=== PATIENT | male | born 2000 | race Hispanic/Latino ===

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

== ENCOUNTER 2022-11-23 17:58 | Emergency (ER) | payer SELFPAY ==
[2022-11-23 20:06] LABS: Absolute Lymphocytes (CBC) 2.3 K/uL (0.7-4.9); Hematocrit 41.4 % (39.6-49.0); Lymphocytes % 34.1 % (15.3-44.8); MCV 87.5 fL (80-100); RBC Red Blood Cell Count 4.72 M/uL (4.33-5.43)
[2022-11-23 20:21] LABS: Albumin 4.6 g/dL (3.4-5.0); Bilirubin Total 0.5 mg/dL (0.2-1.0); Potassium 3.7 mEq/L (3.5-5.1); Protein, Total 7.5 g/dL (6.4-8.2)
[2022-11-23] MEDS ORDERED: ONDANSETRON 4 MG/2 ML VIAL ONE (20:46)
[2022-11-23] MEDS ORDERED: NA CHLORIDE 0.9% 1,000 ML ONE (20:46)
[2022-11-23] MEDS ORDERED: FAMOTIDINE 20 MG/2 ML VIAL IV ONE (20:46)
--- NOTE | 2022-11-23 21:17 | ER ---
Nurse's Notes [facility] Name: Maurice Zelaya Age: 22 yrs Sex: Male : 2000 Arrival Date: 11/23/2022 Time: 17:58 Bed 11 Private MD: Diagnosis: Nausea with vomiting, unspecified;Diarrhea, unspecified Presentation: 11/23 18:17 Chief complaint: Patient states: he has been having diarrhea for approx one week, and ap3 he is having abdominal pain, night sweats, nausea and vomiting. the last few days the patient reports he has become increasingly tired throughout the day and is starting to feel weak. Coronavirus screen: At this time, the client does not indicate any symptoms associated with coronavirus-19. Ebola Screen: No symptoms or risks identified at this time. Initial Sepsis Screen: Does the patient meet any 2 criteria? No. Patient's initial sepsis screen is negative. Does the patient have a suspected source of infection? No. Patient's initial sepsis screen is negative. Risk Assessment: Do you want to hurt yourself or someone else? Patient reports no desire to harm self or others. Onset of symptoms was November 15, 2022. 18:17 Method Of Arrival: Ambulatory ap3 18:17 Acuity: KATHLEEN 3 ap3 Triage Assessment: 18:20 General: Appears in no apparent distress. Behavior is calm, cooperative. Pain: ap3 Complains of pain in abdomen and head. Neuro: Level of Consciousness is awake, alert, obeys commands, Oriented to person, place, time, situation. Neuro: Reports headache. Cardiovascular: Patient's skin is warm and dry. Respiratory: Airway is patent Respiratory effort is even, unlabored, Respiratory pattern is regular, symmetrical. GI: Reports diarrhea, nausea, vomiting, since one week. Historical: - Allergies: 18:19 PENICILLINS; ap3 - Home Meds: 18:19 None [Active]; ap3 - PMHx: 18:19 None; ap3 - Immunization history:: Client reports having NOT received the Covid vaccine. - Social history:: Smoking status: Reported history of juuling and/or vaping. Screenin:21 Abuse screen: Denies threats or abuse. Nutritional screening: No deficits noted. ap3 Tuberculosis screening: No symptoms or risk factors identified. 21:45 [facility] ED Fall Risk Assessment (Adult) History of falling in the last 3 months, kl including since admission No falls in past 3 months (0 pts) Confusion or Disorientation No (0 pts) Intoxicated or Sedated No (0 pts) Impaired Gait No (0 pts) Mobility Assist Device Used No (0 pt) Altered Elimination No (0 pt) Score/Fall Risk Level 0 - 2 = Low Risk. Assessment: 20:53 General: Appears in no apparent distress. comfortable, Behavior is calm, cooperative. kl Neuro: No deficits noted. Cardiovascular: No deficits noted. Respiratory: No deficits noted. GI: Abdomen is flat, Bowel sounds present X 4 quads. Reports nausea. : No deficits noted. No signs and/or symptoms were reported regarding the genitourinary system. EENT: No deficits noted. Derm: No deficits noted. No signs and/or symptoms reported regarding the dermatologic system. Vital Signs: 18:17 BP 121 / 75; Pulse 61; Resp 17; Temp 98.8; Pulse Ox 98% ; Weight 77.11 kg; Height 5 ft. ap3 10 in. ; 20:55 BP 118 / 78; Pulse 68; Resp 18; Temp 98(TE); kl 21:44 BP 114 / 96; Pulse 82; Resp 18; Temp 98(TE); Pulse Ox 100% ; kl 18:17 Body Mass Index 24.39 (77.11 kg, 177.8 cm) ap3 ED Course: 18:02 Patient arrived in ED. rg4 18:03 Dustin Gillette PA is PHCP. cp 18:03 Bobby Louis MD is Attending Physician. cp 18:19 Triage completed. ap3 18:21 Arm band placed on right wrist. ap3 19:25 Attending Physician role handed off by Bobby Louis MD cp 19:25 Dustin Monte MD is Attending Physician. cp 19:40 Inserted saline lock: 20 gauge in right antecubital area, using aseptic technique. Blood collected. 19:52 CBC with Diff Sent. kl 19:52 CMP Sent. kl 19:52 Lipase Sent. kl 19:52 COVID-19 SARS RT PCR Sent. kl 20:47 Urinalysis W/Microscopic Sent. kl 21:14 XRAY Chest (1 view) In Process Unspecified. EDMS 21:44 No provider procedures requiring assistance completed. Patient transferred, IV remains kl in place. intact, bleeding controlled, No redness/swelling at site. Pressure dressing applied. 21:45 Patient has correct armband on for positive identification. kl Administered Medications: 20:47 Drug: NS 0.9% IV 1000 ml Route: IV; Rate: 1 bolus; Site: right antecubital; kl 21:43 Follow up: IV Status: Completed infusion; IV Intake: 1000ml kl 20:47 Drug: Ondansetron IVP 4 mg Route: IVP; Site: right antecubital; kl 21:44 Follow up: Response: No adverse reaction; Marked relief of symptoms kl 20:47 Drug: Famotidine IVP 20 mg Route: IVP; Site: right antecubital; kl 21:43 Follow up: Response: No adverse reaction; Marked relief of symptoms kl Medication: 21:45 VIS not applicable for this client. kl Intake: 21:43 IV: 1000ml; Total: 1000ml. Outcome: 21:16 Discharge ordered by . lynnette 21:45 Discharged to home ambulatory. 21:45 Condition: stable 21:45 Discharge instructions given to patient, Instructed on discharge instructions, follow up and referral plans. Demonstrated understanding of instructions, follow-up care, medications, Prescriptions given X 1. 21:45 Patient left the ED. Signatures: Dispatcher [employer] EDAmie Hager RN Dustin Boothe PA PA cp Garcia, Rubi rg4 Harmony Zee RN RN ap3
--- NOTE | 2022-11-23 21:17 | EDPHYS ---
Physician Documentation [facility] Name: Maurice Zelaya Age: 22 yrs Sex: Male : 2000 Arrival Date: 11/23/2022 Time: 17:58 Bed 11 Private MD: ED Physician Dustin Monte HPI: 11/23 18:35 This 22 yrs old Male presents to ER via Ambulatory with complaints of cp Vomiting, Dizziness. 18:35 The patient presents to the emergency department with nausea, that is mild, vomiting, cp that is intermittent, diarrhea, that is continuous, about 2 episodes per day, abdominal pain, of the left upper quadrant and right lower quadrant, described as intermittent. 18:35 Onset: The symptoms/episode began/occurred 1 week(s) ago. cp 18:35 Possible causes: unknown. Associated signs and symptoms: Pertinent positives: fatigue, cp decreased appetite, Pertinent negatives: constipation, dysuria, fever, GI bleeding, active vomiting. Severity of symptoms: in the emergency department the symptoms are unchanged despite home interventions. Historical: - Allergies: 18:19 PENICILLINS; ap3 - Home Meds: 18:19 None [Active]; ap3 - PMHx: 18:19 None; ap3 - Immunization history:: Client reports having NOT received the Covid vaccine. - Social history:: Smoking status: Reported history of juuling and/or vaping. ROS: 19:00 Eyes: Negative for injury, pain, redness, and discharge. cp 19:00 Constitutional: Positive for fatigue, Negative for body aches, chills, fever, poor PO intake. 19:00 ENT: Negative for drainage from ear(s), ear pain, sore throat, difficulty swallowing, difficulty handling secretions. 19:00 Cardiovascular: Positive for chest pain, Negative for edema, palpitations. 19:00 Respiratory: Negative for cough, shortness of breath, wheezing. 19:00 Abdomen/GI: Positive for abdominal pain, nausea, vomiting, and diarrhea. 19:00 : Negative for urinary symptoms, testicular pain 19:00 Neuro: Positive for Negative for altered mental status, headache, syncope, weakness. 19:00 All other systems are negative. Exam: 19:00 Constitutional: The patient appears in no acute distress, alert, awake, comfortable, cp non-toxic, well developed, well nourished. 19:00 Head/Face: Normocephalic, atraumatic. cp 19:00 Eyes: Periorbital structures: appear normal, Conjunctiva: normal, no exudate, no injection, Sclera: no appreciated abnormality, Lids and lashes: appear normal, bilaterally. 19:00 ENT: External ear(s): are unremarkable, Nose: is normal, Mouth: Lips: moist, Oral mucosa: pink and intact, moist, Posterior pharynx: is normal, airway is patent, no erythema, no exudate. 19:00 Chest/axilla: Inspection: normal. 19:00 Cardiovascular: Rate: normal, Rhythm: regular. 19:00 Respiratory: the patient does not display signs of respiratory distress, Respirations: normal, no use of accessory muscles, no retractions, labored breathing, is not present, Breath sounds: are clear throughout, no decreased breath sounds, no stridor, no wheezing. 19:00 Abdomen/GI: Inspection: abdomen appears normal, Bowel sounds: active, all quadrants, Palpation: abdomen is soft and non-tender, in all quadrants. 19:00 Back: pain, is absent, ROM is normal. 19:00 Skin: no rash present. 19:00 Neuro: Orientation: to person, place \T\ time. Mentation: is normal, Motor: moves all fours, strength is normal, Sensation: is normal. Vital Signs: 18:17 BP 121 / 75; Pulse 61; Resp 17; Temp 98.8; Pulse Ox 98% ; Weight 77.11 kg; Height 5 ft. ap3 10 in. ; 20:55 BP 118 / 78; Pulse 68; Resp 18; Temp 98(TE); kl 21:44 BP 114 / 96; Pulse 82; Resp 18; Temp 98(TE); Pulse Ox 100% ; kl 18:17 Body Mass Index 24.39 (77.11 kg, 177.8 cm) ap3 MDM: 18:28 Patient medically screened. cp 20:50 Independent interpretation of the following test(s) in the Emergency Department X-Ray: cp My interpretation is chest image negative for infiltrates. 21:15 Data reviewed: vital signs, nurses notes, lab test result(s), EKG, radiologic studies, cp plain films. 21:15 Differential diagnosis: Nonspecific abd pain, gastritis, appendicitis, viral cp gastroenteritis, gastroenteritis. Consideration of Admission/Observation Escalation of care including admission/observation considered. I considered the following discharge prescriptions or medication management in the emergency department Medications were administered in the Emergency Department. See MAR. Test considered but Not performed: CT: abdomen/pelvis. Counseling: I had a detailed discussion with the patient and/or guardian regarding: the historical points, exam findings, and any diagnostic results supporting the discharge/admit diagnosis, lab results, radiology results, to return to the emergency department if symptoms worsen or persist or if there are any questions or concerns that arise at home. 11/23 18:29 Order name: COVID-19 SARS RT PCR; Complete Time: 21:23 11/23 21:23 Interpretation: Reviewed. 11/23 18:29 Order name: CBC with Diff; Complete Time: 20:22 11/23 18:29 Order name: CMP; Complete Time: 20:22 11/23 20:40 Interpretation: Normal except: ANION GAP 3.7; ALT 13; AST 12. 11/23 18:29 Order name: Lipase; Complete Time: 20:22 11/23 18:29 Order name: Urinalysis W/Microscopic; Complete Time: 21:23 11/23 21:23 Interpretation: Normal except: Urine SG > 1.030; UPROT 1+; UUROB 2+. 11/23 20:26 Order name: XRAY Chest (1 view); Complete Time: 21:23 11/23 21:24 Interpretation: Report review. 11/23 20:26 Order name: EKG; Complete Time: 20:27 11/23 18:29 Order name: Orthostatic Blood Pressure 11/23 18:29 Order name: IV Saline Lock; Complete Time: 19:52 11/23 18:29 Order name: Labs collected and sent; Complete Time: 19:52 11/23 20:26 Order name: EKG - Nurse/Tech cp Administered Medications: 20:47 Drug: NS 0.9% IV 1000 ml Route: IV; Rate: 1 bolus; Site: right antecubital; kl 21:43 Follow up: IV Status: Completed infusion; IV Intake: 1000ml kl 20:47 Drug: Ondansetron IVP 4 mg Route: IVP; Site: right antecubital; kl 21:44 Follow up: Response: No adverse reaction; Marked relief of symptoms kl 20:47 Drug: Famotidine IVP 20 mg Route: IVP; Site: right antecubital; kl 21:43 Follow up: Response: No adverse reaction; Marked relief of symptoms kl Disposition Summary: 11/23/22 21:16 Discharge Ordered Location: Home cp Problem: new cp Symptoms: have improved cp Condition: Stable cp Diagnosis - Nausea with vomiting, unspecified cp - Diarrhea, unspecified cp Followup: cp - With: Private Physician - When: 2 - 3 days - Reason: Recheck today's complaints Discharge Instructions: - Discharge Summary Sheet cp - Food Choices to Help Relieve Diarrhea, Adult cp - Diarrhea, Adult cp - Nausea and Vomiting, Adult cp Forms: - Medication Reconciliation Form cp - Thank You Letter cp - Antibiotic Education cp - Prescription Opioid Use cp Prescriptions: - Zofran 4 mg Oral Tablet - take 1 tablet by ORAL route every 12 hours As needed; 20 tablet; Refills: 0, cp Product Selection Permitted Addendum: 11/28/2022 06:59 Co-signature as Attending Physician, Bobby Louis MD I reviewed the patient's care r n provided by the Advanced Practice Provider and agree with the diagnosis and treatment plan. Signatures: Dispatcher [employer] Amie Shin RN RN kl Nieto, Roman, MD MD rn Page, Corey, PA PA cp Prokisch, Amanda, RN RN ap3 Corrections: (The following items were deleted from the chart) 11/23 20:40 20:23 Normal except: ANION GAP 3.7. cp cp
[2022-11-23 21:20] LABS: Specific Gravity > 1.030 (1.005-1.030); Urine Bacteria None Seen /HPF (<20); Urine Bilirubin NEGATIVE (Negative); Urine Blood Negative (Negative); Urine Clarity Clear (Clear); Urine Color Yellow (Yellow); Urine Glucose NEGATIVE (Negative); Urine Mucus 1+ /HPF (None Seen); Urine Protein 1+ (Negative); Urine RBC <5 /HPF (None Seen); Urine Urobilinogen 2+ (Normal)
--- NOTE | 2022-11-23 21:21 | RAD REPORT ---
EXAM DESCRIPTION: Mary Single View11/23/2022 9:12 pm CLINICAL HISTORY: CHEST PAIN COMPARISON: No comparisons TECHNIQUE: Portable AP view of the chest. FINDINGS: The lungs are clear. No pneumothorax or effusion. The cardiomediastinal contours are unrem arkable. IMPRESSION: No acute cardiopulmonary process.
[2022-11-23 21:59] VITALS: TEMP 98
[2022-11-23 22:02] VITALS: BP 114/96; O2SAT 100
== END 2022-11-23 21:45 | disposition home or self-care (01) ==
LOC: ER 17:58
DX: R11.2 Nausea with vomiting, unspecified (principal); R19.7 Diarrhea, unspecified; Z20.822 Contact with and (suspected) exposure to COVID-19; Z88.0 Allergy status to penicillin
CPT/HCPCS: 36415; 71045; 80053; 81001; 83690; 85025; 96361; 96374; 96375; 99284; J2405; J7030; U0003

== ENCOUNTER 2023-06-02 12:15 | Emergency (ER) | payer SELFPAY ==
--- NOTE | 2023-06-02 12:37 | ER ---
Nurse's Notes [facility] Name: Maurice Zelaya Age: 23 yrs Sex: Male : 2000 Arrival Date: 06/02/2023 Time: 12:15 Bed IW5 Private MD: Diagnosis: Unspecified injury of head, initial encounter Presentation: 06/02 12:32 Chief complaint: Patient states: hitting his head on a metal frame and has a laceration cm10 to top of head. No LOC. Bleeding controlled at this time. Coronavirus screen: Vaccine status: Patient reports being unvaccinated. Client denies travel out of the [place] in the last 14 days. Ebola Screen: Patient denies travel to an Ebola-affected area in the 21 days before illness onset. No symptoms or risks identified at this time. Mechanism of Injury: resulted from. Initial Sepsis Screen: Does the patient meet any 2 criteria? No. Patient's initial sepsis screen is negative. Does the patient have a suspected source of infection? No. Patient's initial sepsis screen is negative. Risk Assessment: Do you want to hurt yourself or someone else? Patient reports no desire to harm self or others. Onset of symptoms was June 02, 2023. 12:32 Method Of Arrival: Ambulatory cm10 12:32 Acuity: KATHLEEN 4 cm10 Triage Assessment: 12:47 General: Appears in no apparent distress. comfortable, Behavior is calm, cooperative. cm10 Pain: Complains of pain in top of head. EENT: No deficits noted. No signs and/or symptoms were reported regarding the EENT system. Neuro: No deficits noted. Morales Agitation-Sedation Scale (RASS): 0 - Alert and Calm Level of Consciousness is awake, alert, obeys commands, Oriented to person, place, time, situation. Cardiovascular: No deficits noted. Patient's skin is warm and dry. Respiratory: No deficits noted. Airway is patent Respiratory effort is even, unlabored, Respiratory pattern is regular, symmetrical. GI: No deficits noted. No signs and/or symptoms were reported involving the gastrointestinal system. : No deficits noted. No signs and/or symptoms were reported regarding the genitourinary system. Derm: No deficits noted. No signs and/or symptoms reported regarding the dermatologic system. Skin is intact, Skin is pink, warm \T\ dry. Musculoskeletal: No deficits noted. No signs and/or symptoms reported regarding the musculoskeletal system. Range of motion: intact in all extremities. Historical: - Allergies: 12:31 PENICILLINS; cm10 - Home Meds: 12:31 None [Active]; cm10 - PMHx: 12:31 None; cm10 - PSHx: 12:31 None; cm10 - Immunization history:: Adult Immunizations unknown. - Social history:: Smoking status: Patient reports the use of cigarette tobacco products, denies chronic smoking, but will smoke occasionally. - Family history:: not pertinent. - Hospitalizations: : No recent hospitalization is reported. Screenin:48 [facility] ED Fall Risk Assessment (Adult) History of falling in the last 3 months, cm10 including since admission No falls in past 3 months (0 pts) Confusion or Disorientation No (0 pts) Intoxicated or Sedated No (0 pts) Impaired Gait No (0 pts) Mobility Assist Device Used No (0 pt) Altered Elimination No (0 pt) Score/Fall Risk Level 0 - 2 = Low Risk Oriented to surroundings, Maintained a safe environment, Hourly rounding (assess needs \T\ fall precautionary measures) done. Abuse screen: Denies threats or abuse. Denies injuries from another. Nutritional screening: No deficits noted. Tuberculosis screening: No symptoms or risk factors identified. Vital Signs: 12:32 BP 123 / 77; Pulse 70; Resp 16; Temp 98.2; Pulse Ox 100% ; Weight 72.57 kg; Height 5 cm10 ft. 11 in. ; Pain 6/10; 12:32 Body Mass Index 22.32 (72.57 kg, 180.34 cm) cm10 12:32 Pain Scale: Adult cm10 [place] Coma Score: 12:32 Eye Response: spontaneous(4). Motor Response: obeys commands(6). Verbal Response: cm10 oriented(5). Total: 15. 12:33 Eye Response: spontaneous(4). Motor Response: obeys commands(6). Verbal Response: rn oriented(5). Total: 15. 12:33 Eye Response: spontaneous(4). Motor Response: obeys commands(6). Verbal Response: rn oriented(5). Total: 15. ED Course: 12:18 Patient arrived in ED. mr 12:18 Bobby Louis MD is Attending Physician. rn 12:33 Triage completed. cm10 12:34 Arm band placed on right wrist. Patient placed in waiting room. cm10 12:48 Patient has correct armband on for positive identification. Provided Education on: ER cm10 process and procedures. . 12:48 No provider procedures requiring assistance completed. Patient did not have IV access cm10 during this emergency room visit. Administered Medications: No medications were administered Medication: 12:48 VIS not applicable for this client. cm10 Outcome: 12:36 Discharge ordered by . rn 12:48 Discharged to home ambulatory, with family, cm10 12:48 Condition: good 12:48 Discharge instructions given to patient, Instructed on discharge instructions, follow up and referral plans. Demonstrated understanding of instructions, follow-up care, 12:48 Patient left the ED. cm10 Signatures: Aubree Castaneda Reg Reg mr Bobby Louis MD MD rn Shanita Read RN RN cm10
--- NOTE | 2023-06-02 12:37 | EDPHYS ---
Physician Documentation [facility] Name: Maurice Zelaya Age: 23 yrs Sex: Male : 2000 Arrival Date: 06/02/2023 Time: 12:15 Bed IW5 Private MD: ED Physician Bobby Louis HPI: 06/02 12:33 This 23 yrs old Male presents to ER via Unassigned with complaints of Head rn Injury-Adult. 12:33 The patient or guardian reports injury. The complaints affect the top of head. Onset: rn The symptoms/episode began/occurred just prior to arrival. Associated signs and symptoms: Loss of consciousness: This patient did not experience any loss of consciousness. Pertinent positives: headache, Pertinent negatives: the patient has not experienced a loss of conciousness, patient denies any alcohol consumption, dazed, incontinence, neck pain, seizure, shortness of breath, tinnitus, vomiting, weakness in extremities, generalized weakness. Severity of symptoms: At their worst the symptoms were mild, in the emergency department the symptoms have improved. The patient has not experienced similar symptoms in the past. Patient reports was weed eating and accidentally struck his head on a light post. Had a small cut there was bleeding initially but stopped on its own. Reports mild headache but no vomiting/seizures/loss of consciousness. No focal neurological problems or complaints. Does not take any blood thinners. Patient states feels fine now.. Historical: - Allergies: 12:31 PENICILLINS; cm10 - Home Meds: 12:31 None [Active]; cm10 - PMHx: 12:31 None; cm10 - PSHx: 12:31 None; cm10 - Immunization history:: Adult Immunizations unknown. - Social history:: Smoking status: Patient reports the use of cigarette tobacco products, denies chronic smoking, but will smoke occasionally. - Family history:: not pertinent. - Hospitalizations: : No recent hospitalization is reported. ROS: 12:33 Constitutional: Negative for fever, chills, and weight loss, Neck: Negative for injury, rn pain, and swelling, Abdomen/GI: Negative for abdominal pain, nausea, vomiting, diarrhea, and constipation, Neuro: Negative for weakness, numbness, tingling, and seizure, Exam: 12:33 Constitutional: This is a well developed, well nourished patient who is awake, alert, rn and in no acute distress. Head/Face: Normocephalic, small subcentimeter laceration to top of head/scalp. No active bleeding. Wound does not open with lateral pressure. No depression. Neck: No neck tenderness Neuro: Awake and alert, GCS 15, oriented to person, place, time, and situation. Cranial nerves II-XII grossly intact. Motor strength 5/5 in all extremities. Sensory grossly intact. Cerebellar exam normal. Normal gait. Vital Signs: 12:32 BP 123 / 77; Pulse 70; Resp 16; Temp 98.2; Pulse Ox 100% ; Weight 72.57 kg; Height 5 cm10 ft. 11 in. ; Pain 6/10; 12:32 Body Mass Index 22.32 (72.57 kg, 180.34 cm) cm10 12:32 Pain Scale: Adult cm10 [place] Coma Score: 12:32 Eye Response: spontaneous(4). Motor Response: obeys commands(6). Verbal Response: cm10 oriented(5). Total: 15. 12:33 Eye Response: spontaneous(4). Motor Response: obeys commands(6). Verbal Response: rn oriented(5). Total: 15. 12:33 Eye Response: spontaneous(4). Motor Response: obeys commands(6). Verbal Response: rn oriented(5). Total: 15. MDM: 12:18 Patient medically screened. rn 12:33 Differential diagnosis: Contusion of Hematoma on Laceration, abrasion. Data reviewed: rn vital signs, nurses notes, and as a result, I will discharge patient. Test considered but Not performed: CT: CT head considered but no indications for emergent imaging at this time. Explained this to patient and he agrees. Comfortable with plan of DC home without imaging.. Counseling: I had a detailed discussion with the patient and/or guardian regarding the historical points, exam findings, and any diagnostic results supporting the discharge/admit diagnosis, the need for outpatient follow up, to return to the emergency department if symptoms worsen or persist or if there are any questions or concerns that arise at home. Special discussion: I discussed with the patient/guardian in detail that at this point there is no indication for admission to the hospital. It is understood, however, that if the symptoms persist or worsen the patient needs to return immediately for re-evaluation. Administered Medications: No medications were administered Disposition Summary: 06/02/23 12:36 Discharge Ordered Notes: Location: Home rn Problem: new rn Symptoms: have improved rn Condition: Stable rn Diagnosis - Unspecified injury of head, initial encounter rn Followup: rn - With: Private Physician - When: As needed - Reason: Recheck today's complaints, Re-evaluation by your physician Discharge Instructions: - Discharge Summary Sheet rn - Head Injury, Adult rn Forms: - Medication Reconciliation Form rn - Thank You Letter rn - Antibiotic divorce attorney - Prescription Opioid Use rn - Patient Portal Instructions rn - Leadership Thank You Letter rn Signatures: Bobby Louis MD MD rn Shanita Read RN RN 10
[2023-06-02 12:55] VITALS: BP 123/77; TEMP 98.2; O2SAT 100
== END 2023-06-02 12:48 | disposition home or self-care (01) ==
LOC: ER 12:15
DX: S09.90XA Unspecified injury of head, initial encounter (principal)
CPT/HCPCS: 99282